=== PATIENT | male | born 1990 | race American Indian/Alaskan Native ===

== ENCOUNTER 2017-11-17 15:09 | Emergency (ER) | payer SELFPAY ==
[2017-11-17 15:21] VITALS: BP 138/59
[2017-11-17] MEDS ORDERED: XYLOCAINE 1% MPF 5 mL ONE (15:52)
--- NOTE | 2017-11-17 16:04 | Emergency Department Report ---
HPI - General Chief Complaint: Extremity Injury, Upper - HPI HPI: Room 8 The patient is a 27-year-old male presenting with a chief complaint of left small finger pain. The patient states he was playing contact football with quick when he jammed his left small finger on his opponent's pads. Patient states the event occurred at approximately 14:00. Patient only complains of pain at the left finger Location: Left small finger Duration: Onset at 14:00 Quality: Pain Severity:6-8/10 Modifying factors: [see above] Context: [see above] Mode of transportation: [not driving] ED Past Medical Hx - Past Medical History Previous Medical History?: No - Surgical History Past Surgical History?: No - Family History Family history: no significant - Social History Smoking Status: Current Every Day Smoker (1/2 pack per day) Substance Use Type: Alcohol (occasional) - Medications Home Medications: Home Medications Medication Instructions Recorded Confirmed Last Taken Type HYDROcodone/APAP 5-325 [Chana 1 - 2 each PO Q6HR PRN #14 tablet 11/17/17 Unknown Rx 5/325] Ibuprofen [Motrin 800 MG tab] 800 mg PO Q8HR PRN #20 tablet 11/17/17 Unknown Rx ED Review of Systems ROS: Stated complaint: LEFT FINGER INJURY Other details as noted in HPI Constitutional: no symptoms reported Eyes: denies: eye pain ENT: denies: throat pain Respiratory: no symptoms reported Cardiovascular: denies: chest pain Endocrine: no symptoms reported Gastrointestinal: denies: abdominal pain Musculoskeletal: arthralgia Neurological: denies: headache Physical Exam - Physical Exam Vital Signs: Vital Signs 11/17/17 15:18 Temperature 98.7 F Pulse Rate 85 Blood Pressure 138/59 Physical Exam: GENERAL: The patient is well-developed well-nourished male sitting on stretcher not appear to be in acute distress. [] HEENT: Normocephalic. Atraumatic. Extraocular motions are intact. Patient has moist mucous membranes. NECK: Supple. Trachea midline CHEST/LUNGS: Clear to auscultation. There is no respiratory distress noted. HEART/CARDIOVASCULAR: Regular. There is no tachycardia. There is no gallop rub or murmur. ABDOMEN: Abdomen is soft, nontender. Patient has normal bowel sounds. There is no abdominal distention. SKIN: There is no rash. There is no edema. There is no diaphoresis. No lacerations NEURO: The patient is awake, alert, and oriented. The patient is cooperative. The patient has normal speech MUSCULOSKELETAL: There is an obvious deformity of the left small finger at the PIP ED Course Vital Signs 11/17/17 15:18 Temperature 98.7 F Pulse Rate 85 Blood Pressure 138/59 - Nerve Block Consent Obtained: verbal consent Time Out Performed: Yes Local Anesthetic Used: Lidocaine 1% Amount of anesthesia used: 5 Side: left Nerve Blocks: digital Procedure Successful: Yes Complications: none Patient Tolerated Procedure: no complications - Orthopedic Joint Reduction Joint #1 Consent Obtained: verbal consent Time Out Performed: No Side: left Joint Reduction Location: finger Analgesia: digital block Local Anesthetic Used: Lidocaine 1% Amount of Anesthetic Used (mls): 5 Technique Used: traction/counter-traction Post-Reduction Neuro Exam: intact Post-Reduction Vascular Exam: intact Post Reduction X-Ray Obtained: Yes Post Reduction X-Ray Results: reduced Splint Applied: Yes Patient Tolerated Procedure: well ED Medical Decision Making - Radiology Data Radiology results: image reviewed (left hand x-ray #1, left hand x-ray #2) interpreted by me: Left hand x-ray #1- dislocation at the PIP of the small finger. No fractures Left Hand x-ray #2- appropriate reduction of left small finger - Differential Diagnosis finger fracture, finger dislocation Critical care attestation.: If time is entered above; I have spent that time in minutes in the direct care of this critically ill patient, excluding procedure time. ED Disposition Clinical Impression: Dislocation, finger closed, Acute pain Disposition: TO HOME OR SELFCARE Is pt being admited?: No Does the pt Need Aspirin: No Condition: Stable Instructions: Finger Dislocation (ED) Additional Instructions: Return to the emergency department immediately should you develop worsening symptoms, fever, inability to tolerate food or liquid or any other concerns. Prescriptions: HYDROcodone/APAP 5-325 [Chana 5/325] 1 - 2 each PO Q6HR PRN #14 tablet PRN Reason: Pain Ibuprofen [Motrin 800 MG tab] 800 mg PO Q8HR PRN #20 tablet PRN Reason: Pain, Moderate (4-6) Referrals: CORBY MENDEZ MD [Staff Physician] - 3-5 Days (Dr. Mendez is an orthopedic surgeon. Please follow with him for further evaluation) Time of Disposition: 16:26
--- NOTE | 2017-11-17 16:21 | XRay Report ---
FINAL REPORT EXAM: XR FINGER(S) 2+V LT HISTORY: SWELLING IN LT FIFTH DIGIT COMPARISON: None. TECHNIQUE: Three views of the left 5th digit FINDINGS: There is ulnar dislocation of the proximal interphalangeal joint of the 5th digit. There is no bony fracture. There is an old ulnar styloid fracture. The remainder of the bones are intact. The overlying soft tissues are intact. IMPRESSION: Ulnar dislocation of the proximal interphalangeal joint of the 5th digit. No bony fracture.
--- NOTE | 2017-11-17 16:29 | XRay Report ---
FINAL REPORT EXAM: XR FINGER(S) 2+V LT HISTORY: status post reduction COMPARISON: Radiographs of the left 5th digit performed on 11/17/2017 TECHNIQUE: Two views of the left 5th digit including a frontal view of the hand FINDINGS: There has been reduction of the previously seen dislocation at the proximal interphalangeal joint of the 5th digit. There is no bony fracture. The remainder of the joint spaces are preserved. The overlying soft tissues are intact. There is a remote ulnar styloid fracture. IMPRESSION: Status post reduction of previously seen dislocation at the proximal interphalangeal joint of the 5th digit. No bony fracture.
== END 2017-11-17 17:00 | disposition home or self-care (01) ==
LOC: ED 15:09
DX: S63.287A Dislocation of proximal interphalangeal joint of left little finger, initial encounter (principal); F17.200 Nicotine dependence, unspecified, uncomplicated; Z88.0 Allergy status to penicillin; W23.0XXA Caught, crushed, jammed, or pinched between moving objects, initial encounter; Y93.61 Activity, american tackle football; Y92.89 Other specified places as the place of occurrence of the external cause; Y99.8 Other external cause status
CPT/HCPCS: 99283